=== PATIENT | female | born 2000 | race Caucasian/White ===

== ENCOUNTER 2022-04-23 15:19 | Emergency (ER) | payer BC ==
[~2022-04-23 15:19] MED LIST: KEFLEX CAP 500500 MG PO; TORADOL 10 MG T10 MG PO
[2022-04-23 16:54] LABS: HEMOGLOBIN 12.6 gm/dl (12.3-15.3); RED BLOOD COUNT 4.67 M/UL (4.00-5.10); WHITE BLOOD COUNT 10.2 K/UL (4.5-11.0)
[2022-04-23 17:33] LABS: BUN/CREATININE RATIO 11 (0-10)
[2022-04-23] MEDS ORDERED: PHENERGAN 12.12.5 MG PR (20:48)
[2022-04-23] MEDS ORDERED: CEPHALEXIN500 M1 PO (20:48)
[2022-04-23] MEDS ORDERED: PHENERGAN 25 MG25 M1 PO (20:48)
== END 2022-04-23 21:01 | disposition home or self-care (01) ==
LOC: ER1 15:19
PROVIDERS: Nurse Practitioner
DX: O21.1 Hyperemesis gravidarum with metabolic disturbance (principal); E86.0 Dehydration; O23.41 Unspecified infection of urinary tract in pregnancy, first trimester; N39.0 Urinary tract infection, site not specified; Z3A.01 Less than 8 weeks gestation of pregnancy
CPT/HCPCS: 80053; 81001; 84702; 85025; 87086; 96374; 96375; 99284; J1200; J2765

== ENCOUNTER 2022-04-25 23:41 | Emergency (ER) | payer BC ==
[~2022-04-25 23:41] MED LIST changes: +CEPHALEXIN500 M1 PO; +PHENERGAN 12.12.5 MG PR; +PHENERGAN 25 MG25 M1 PO
[2022-04-26 02:58] LABS: HEMOGLOBIN 12.8 gm/dl (12.3-15.3); RED BLOOD COUNT 4.82 M/UL (4.00-5.10); WHITE BLOOD COUNT 11.5 K/UL (4.5-11.0)
[2022-04-26 03:19] LABS: BUN/CREATININE RATIO 10 (0-10)
== END 2022-04-26 06:59 | disposition home or self-care (01) ==
LOC: ER1 23:41
PROVIDERS: Family Medicine
DX: O23.41 Unspecified infection of urinary tract in pregnancy, first trimester (principal); N39.0 Urinary tract infection, site not specified; O21.9 Vomiting of pregnancy, unspecified; Z3A.01 Less than 8 weeks gestation of pregnancy
CPT/HCPCS: 76817; 80053; 81001; 83690; 84702; 85025; 96361; 96372; 96374; 96375; 99284; J0500; J0696; J2765